=== PATIENT | male | born 1945 | race Caucasian/White ===

== ENCOUNTER → 2017-02-20 | Outpatient (CLI) | payer MEDICARE ==
--- NOTE | 2017-02-21 07:34 | ECHOF ---
Referral Reason:Edema R60.9 MEASUREMENTS -------- HEIGHT: 188.0 cm WEIGHT: 102.1 kg BP: 151/61 RVIDd: 3.5 cm (< 3.3) IVSd: 1.2 cm (0.6 - 1.1) LVIDd: 3.7 cm (3.9 - 5.3) LVPWd: 1.3 cm (0.6 - 1.1) IVSs: 1.8 cm LVIDs: 3.1 cm LVPWs: 2.0 cm LA Diam: 2.9 cm (2.7 - 3.8) LAESV Index (A-L): 19.10 ml/m Ao Diam: 4.0 cm (2.0 - 3.7) AV Cusp: 2.4 cm (1.5 - 2.6) MV EXCURSION: 13.883 mm (> 18.000) MV EF SLOPE: 54 mm/s (70 - 150) EPSS: 0.8 cm MV E Rj: 0.58 m/s MV DecT: 358 ms MV A Rj: 0.57 m/s MV E/A Ratio: 1.03 RAP: 5.00 mmHg RVSP: 28.02 mmHg FINDINGS -------- Sinus rhythm. This was a technically good study. The left ventricular size is normal. There is mild concentric left ventricular hypertrophy. Overall left ventricular systolic function is normal with, an EF between 55 - 60 %. The right ventricle is mildly enlarged. Normal LA size by volume 22+/-6 ml/m2. The right atrium is normal in size. The aortic valve is trileaflet and appears structurally normal. Mild mitral annular calcification present. There is trace to mild mitral regurgitation. Mild tricuspid regurgitation present. Right ventricular systolic pressure is normal at < 35 mmHg. Trace/mild (physiologic) pulmonic regurgitation. The aortic root size is normal. Normal inferior vena cava with normal inspiratory collapse consistent with estimated right atrial pressure of 5 mmHg. There is no pericardial effusion. CONCLUSIONS -------- 1. Sinus rhythm. 2. Mild mitral annular calcification present. 3. There is trace to mild mitral regurgitation. 4. Mild tricuspid regurgitation present. 5. Right ventricular systolic pressure is normal at < 35 mmHg. 6. Trace/mild (physiologic) pulmonic regurgitation. 7. The aortic root size is normal. 8. Normal inferior vena cava with normal inspiratory collapse consistent with estimated right atrial pressure of 5 mmHg. 9. There is no pericardial effusion. 10. This was a technically good study. 11. The left ventricular size is normal. 12. There is mild concentric left ventricular hypertrophy. 13. Overall left ventricular systolic function is normal with, an EF between 55 - 60 %. 14. The right ventricle is mildly enlarged. 15. Normal LA size by volume 22+/-6 ml/m2. 16. The right atrium is normal in size. 17. The aortic valve is trileaflet and appears structurally normal. NATURAL SCIENCES PROFESSOR: Grace Avila RDCS
== END | disposition home or self-care (01) ==
LOC: RADECHMAIN 15:39
PROVIDERS: ATTEND Family Medicine
DX: I08.1 Rheumatic disorders of both mitral and tricuspid valves (principal)
CPT/HCPCS: 93306

== ENCOUNTER → 2017-09-12 | Outpatient (CLI) | payer MEDICARE ==
--- NOTE | 2017-09-12 12:23 | XR ---
EXAMINATION TYPE: XR chest 2V DATE OF EXAM: 09/12/2017 COMPARISON: NONE HISTORY: Shortness of breath TECHNIQUE: Frontal and lateral views of the chest are obtained. FINDINGS: Scattered senescent parenchymal changes noted. Hyperinflation compatible with COPD. No evidence for infiltrate. No evidence for atelectasis. Heart size is stable. Mediastinal structures are stable and grossly unremarkable. No evidence for hilar prominence. Degenerative changes dorsal spine. IMPRESSION: 1. No evidence for acute pulmonary disease.
== END | disposition home or self-care (01) ==
LOC: RADXRYALE 11:41
PROVIDERS: ATTEND Family Medicine
DX: J44.9 Chronic obstructive pulmonary disease, unspecified (principal)
CPT/HCPCS: 71046

== ENCOUNTER → 2018-09-04 | Outpatient (CLI) | payer MEDICARE ==
--- NOTE | 2018-09-04 10:12 | ECHOF ---
Referral Reason:I44.7 Left bundle-branch block,R06.02 Shortness of MEASUREMENTS -------- HEIGHT: 188.0 cm WEIGHT: 102.1 kg BP: 111/59 RVIDd: 3.7 cm (< 3.3) IVSd: 1.4 cm (0.6 - 1.1) LVIDd: 4.0 cm (3.9 - 5.3) LVPWd: 1.3 cm (0.6 - 1.1) IVSs: 1.9 cm LVIDs: 2.8 cm LVPWs: 2.2 cm LA Diam: 3.5 cm (2.7 - 3.8) LAESV Index (A-L): 23.59 ml/m Ao Diam: 4.0 cm (2.0 - 3.7) AV Cusp: 2.2 cm (1.5 - 2.6) EPSS: 0.8 cm MV E Rj: 0.64 m/s MV DecT: 314 ms MV A Rj: 0.69 m/s MV E/A Ratio: 0.93 MV EF SLOPE: 68.46 mm/s (70 - 150) MV EXCURSION: 2.48 cm (> 18.000) FINDINGS -------- Sinus rhythm. This was a technically good study. The left ventricular size is normal. There is mild concentric left ventricular hypertrophy. Overa ll left ventricular systolic function is normal with, an EF between 55 - 60 %. The right ventricle is mildly enlarged. Normal LA size by volume 22+/-6 ml/m2. The right atrium is normal in size. The aortic valve is trileaflet and appears structurally normal. The mitral valve leaflets are mildly thickened. Mild mitral regurgitation is present. Mild tricuspid regurgitation present. Right ventricular systolic pressure is normal at < 35 mmHg. Trace/mild (physiologic) pulmonic regurgitation. The aortic root is dilated measuring 4.0cm. Normal inferior vena cava with normal inspiratory collapse consistent with estimated right atrial pre ssure of 5 mmHg. There is no pericardial effusion. CONCLUSIONS -------- 1. Sinus rhythm. 2. This was a technically good study. 3. The left ventricular size is normal. 4. There is mild concentric left ventricular hypertrophy. 5. Overall left ventricular systolic function is normal with, an EF between 55 - 60 %. 6. The right ventricle is mildly enlarged. 7. Normal LA size by volume 22+/-6 ml/m2. 8. The right atrium is normal in size. 9. The aortic valve is trileaflet and appears structurally normal. 10. The mitral valve leaflets are mildly thickened. 11. Mild mitral regurgitation is present. 12. Mild tricuspid regurgitation present. 13. Right ventricular systolic pressure is normal at < 35 mmHg. 14. Trace/mild (physiologic) pulmonic regurgitation. 15. The aortic root is dilated measuring 4.0cm. 16. Normal inferior vena cava with normal inspiratory collapse consistent with estimated right atrial pressure of 5 mmHg. 17. There is no pericardial effusion. RN BIRTHING: CECE Mason
== END | disposition home or self-care (01) ==
LOC: RADECHMAIN 08:37
PROVIDERS: ATTEND Family Medicine
DX: I37.1 Nonrheumatic pulmonary valve insufficiency (principal)
CPT/HCPCS: 93306

== ENCOUNTER 2018-09-15 10:38 | Day surgery (SDC) | payer MEDICARE ==
[2018-09-11 09:31] VITALS: BMI 28.8
[~2018-09-15 10:38] MED LIST: LACTATED RINGERS 1,000 ML IV SCH
[2018-09-15 10:56] VITALS: TEMP 97.9
[2018-09-15] MEDS ORDERED: LIDOCAINE 1% 20 ML VIAL (10MG/ML) FOR IV START INTRADERMA ONE (10:58)
[2018-09-15 11:30] VITALS: RESP 16
--- NOTE | 2018-09-15 11:30 | P.PCN ---
Date of Procedure: 09/15/18 Procedure(s) Performed: Procedure: Total colonoscopy. Preoperative diagnosis: Screening for neoplasia, patient has history of polyps. Postoperative diagnosis: Exam within normal limits. Preparation: HalfLytely prep. Sedation: Was provided by anesthesia. Brief clinical history: The patient is a 73-year-old male who is scheduled for this evaluation because of history of adenomatous polyps. His last exam was in July 2014. The patient has no abdominal complaints, bleeding or anemia. Procedure: With the patient on his left lateral decubitus position and after informed consent and adequate sedation, the perianal area was inspected and it did not show any fissures or fistulas. He were no masses felt on digital rectal examination. The Olympus CFH 190L video colonoscope was then inserted in the rectum in the usual fashion and advanced to the cecum. The mucosa appeared healthy. No polyps or tumors were seen or any obvious diverticular disease or other pathology. I retroflexed the endoscope in the rectum before the endoscope was withdrawn. The patient tolerated the procedure well. Plan: The patient was reassured. He will follow up with you as planned and I recommended repeat exam in 5 years.
[2018-09-15 11:51] VITALS: BP 135/84; PULSE 51
== END 2018-09-15 11:56 | disposition home or self-care (01) ==
LOC: ORWHC2ENDO 10:38
DX: Z12.11 Encounter for screening for malignant neoplasm of colon (principal); Z86.010 Personal history of colon polyps; J44.9 Chronic obstructive pulmonary disease, unspecified; M19.90 Unspecified osteoarthritis, unspecified site; N40.0 Benign prostatic hyperplasia without lower urinary tract symptoms; Z85.828 Personal history of other malignant neoplasm of skin; I50.9 Heart failure, unspecified; Z87.891 Personal history of nicotine dependence; Z79.1 Long term (current) use of non-steroidal anti-inflammatories (NSAID); Z79.51 Long term (current) use of inhaled steroids; Z79.899 Other long term (current) drug therapy

== ENCOUNTER → 2018-12-15 | Outpatient (CLI) | payer MEDICARE ==
[2018-12-15 15:25] LABS: HCT 42.7 % (39.0-53.0); HGB 14.5 gm/dL (13.0-17.5); MCH 31.8 pg (25.0-35.0); MCHC 33.9 g/dL (31.0-37.0); MCV 93.8 fL (80.0-100.0); Mean Platelet Volume 7.3; Platelet Count 209 k/uL (150-450); RBC 4.56 m/uL (4.30-5.90); RDW 14.4 % (11.5-15.5); WBC 7.8 k/uL (3.8-10.6)
[2018-12-15 15:41] LABS: African American GFR (CKD) >90 (>60 ml/min/1.73 sqM); Anion Gap 9 mmol/L; Blood Urea Nitrogen 18 mg/dL (9-20); Carbon Dioxide 25 mmol/L (22-30); Chloride 109 mmol/L (98-107); Sodium 143 mmol/L (137-145)
== END | disposition home or self-care (01) ==
LOC: LABPAT 14:56
PROVIDERS: ATTEND Internal Medicine Interventional Cardiology
DX: Z01.812 Encounter for preprocedural laboratory examination (principal); R06.02 Shortness of breath; I10 Essential (primary) hypertension
CPT/HCPCS: 36415; 80051; 82565; 84520; 85027

== ENCOUNTER → 2018-12-22 | Day surgery (SDC) | payer MEDICARE ==
[2018-12-17 13:34] VITALS: BMI 28.8
[~2018-12-22] MED LIST changes: +ALPRAZolam 0.25 MG TAB PO PRN; +ALPRAZolam 0.5 MG TAB PO PRN; +ASPIRIN 325 MG TAB PO STA; +ATORVASTATIN 80 MG TAB PO STA; +HEPARIN SODIUM 1,000 UN/ML (10ML VL) IV ONE; +HEPARIN SODIUM 1,000 UN/ML (10ML VL) ONE; +IOPAMIDOL-370 125ML BTL INJ ONE; -LACTATED RINGERS 1,000 ML IV SCH; +LIDOCAINE 1% INJ 10MG/ML (20 ML MDV) ONE; +LIDOCAINE 1% INJ 10MG/ML (20 ML MDV) SQ ONE; +MIDAZOLAM (PF) 2 MG/2 ML VIAL IVP ONE; +NITROGLYCERIN SL TABS 0.4 MG TAB SUBLINGUAL PRN; +RX INFO: IV CONTRAST WAS GIVEN 1 EACH MISC MISCELLANE PRN; +SODIUM CHLORIDE 0.9% 1,000 ML IV ONE; +SODIUM CHLORIDE 0.9% 1,000 ML IV SCH; +SODIUM CHLORIDE 0.9% 1,000 ML in EMPTY BAG 1 BAG IV ONE; +VERAPAMIL 2.5 MG/ML 2 ML AMP ONE
[2018-12-22 10:15] VITALS: TEMP 97.9
[2018-12-22] MEDS: VERAPAMIL SYRINGE (5 MG/10 ML) INTRAARTER ONE ×2 (11:38→11:40)
--- NOTE | 2018-12-22 12:53 | CC ---
CARDIAC CATHETERIZATION REPORT DATE OF SERVICE: December 22, 2018 PERFORMING PHYSICIAN: El Rhodes MD, driver supervisor. PROCEDURE PERFORMED: 1. Selective right and left coronary angiogram. 2. Left heart catheterization. INDICATION: This is a 73-year-old gentleman with hypertension, dyslipidemia, COPD, who was experiencing shortness of breath with exertion. He underwent noninvasive cardiac testing came into be unremarkable, but in spite of that, he continues to be symptomatic and because of that, a heart catheterization was advised. APPROACH: Right radial artery. COMPLICATION: None. LEVEL OF SEDATION: Moderate with sedation length of 13 minutes. PROCEDURE DESCRIPTION: After obtaining an informed consent, the patient was brought to cardiac laborer livestock. The right radial artery was cannulated using micropuncture technique. Then I placed a 5- [place] sheath. I did give the patient 2 mg of verapamil IA and 10,000 units of heparin IV. Selective right and left coronary angiogram performed using JR4 and JL3.5 catheters. Left heart catheterization was performed using the JR4 catheter which crossed the aortic valve then I did pullback across the valve. The procedure was completed without any complication. SELECTIVE CORONARY ANGIOGRAM: 1. The right coronary artery is a large caliber vessel. It is a dominant vessel. It is angiographically normal. Distally it bifurcates into PDA and PLV branches, both appeared to be angiographically normal. 2. The left main is angiographically normal. It bifurcates into left circumflex and left anterior descending artery. 3. The left circumflex is a large caliber vessel. It is a nondominant vessel and appeared to be angiographically normal. The left circumflex in the mid portion gives rise into a large OM branch which seems to be normal. 4. The LAD: The proximal LAD just by the bifurcation of the first diagonal branch has eccentric lesion was most identified on the PADRON caudal view and seems to be in the range of 50%. The mid LAD appeared to have mild disease only and the LAD distally appeared to be angiographically normal. The LAD in the proximal portion gives rise into a large diagonal branch which has mild ostial disease. HEMODYNAMICS: The left ventricular end-diastolic pressure was 11 mmHg without significant gradient across the aortic valve. CONCLUSION: 1. Intermediate disease involving the proximal LAD. The disease appeared to be in the range of 50% to 60%. 2. Normal left ventricular end-diastolic pressure. POSTPROCEDURE MANAGEMENT: 1. Aggressive cholesterol control. 2. Risk factors modifications. 3. Follow up with the patient. MMRANDALL / IJN: [id number] /
--- NOTE | 2018-12-22 13:38 | LTR ---
December 22, 2018 Re: Neal Pierceenno Dear Dr. Montanez: Mr. Neal Dobson underwent today heart catheterization and that revealed intermediate disease involving the proximal left anterior descending artery. I did recommend maximized medical treatment and risk factors modifications. I want to thank you for allowing us to participate in his care and please do not hesitate to call if you have any question or concern. Sincerely, MD KALI Avila / HAYLIE: [id number] /
[2018-12-22 15:07] VITALS: BP 125/78; PULSE 46; RESP 16
== END ==
LOC: CATHCVL 09:28
PROVIDERS: ATTEND Internal Medicine Interventional Cardiology
DX: I25.110 Atherosclerotic heart disease of native coronary artery with unstable angina pectoris (principal); I77.819 Aortic ectasia, unspecified site; I10 Essential (primary) hypertension; E78.00 Pure hypercholesterolemia, unspecified; R60.0 Localized edema; Z87.891 Personal history of nicotine dependence; E78.5 Hyperlipidemia, unspecified; J44.9 Chronic obstructive pulmonary disease, unspecified
CPT/HCPCS: 93458; C1769; C1894; J2001; J1644; Q9967; J2250

== ENCOUNTER → 2019-12-07 | Outpatient (CLI) | payer MEDICARE ==
[2019-12-07 16:26] LABS: African American GFR (CKD) >90 (>60 ml/min/1.73 sqM); Blood Urea Nitrogen 17 mg/dL (9-20); Non-African American GFR(CKD) 89 (>60 ml/min/1.73 sqM)
--- NOTE | 2019-12-08 08:10 | CT ---
EXAMINATION TYPE: CT urogram wo/w con DATE OF EXAM: 12/07/2019 COMPARISON: None HISTORY: Microhematuria. CT DLP: 2300.6 mGycm Automated exposure control for dose reduction was used. CONTRAST: Performed without and with IV Contrast, patient injected with 100ml mL of Isovue 300. TECHNIQUE: Axial images 5 mm thick sections. Reconstructed images in the coronal and sagittal plane. Three-D reconstructed images performed on a separate computer by the technologist through the renal c ollecting system was performed following contrast. FINDINGS: Renal calyces infundibuli and renal pelves appear normal. Ureters follow a normal caliber course and contour to the urinary bladder. Urinary bladder with contrast appears normal. There is a portion of u rinary bladder without contrast limiting portions of the evaluation. Limited CT sections are obtained the lung bases which are clear. CT ABDOMEN: Liver has a normal density without discrete masses or cysts. Spleen contains calcificatio n. Adrenal glands are normal. Pancreas is unremarkable. Gallbladder is normal. Vascular calcification s within the aorta. Vena cava is normal. Attention is paid to the kidneys. No masses cysts or hydronephrosis are evident. There is symmetrical excretion following contrast administration. CT PELVIS: Loops of bowel without oral contrast appear unremarkable. The appendix is visualized is no rmal. Urinary bladder on the axial images appears normal. The prostate is somewhat prominent. IMPRESSION: 1. NO SUSPICIOUS CHANGES CT UROGRAM
== END | disposition home or self-care (01) ==
LOC: RADCTMAIN 15:51
PROVIDERS: ATTEND Urology
DX: R31.1 Benign essential microscopic hematuria (principal)
CPT/HCPCS: 82565; 84520; 74178; 36415; 74400; Q9967

== ENCOUNTER → 2020-09-06 | Outpatient (CLI) | payer MEDICARE ==
--- NOTE | 2020-09-06 12:30 | XR ---
EXAMINATION TYPE: XR finger RT DATE OF EXAM: 09/06/2020 CLINICAL HISTORY: pain First digit. TECHNIQUE: 3 views of the right first digit are submitted. COMPARISON: None FINDINGS: There is chip or avulsion fracture noted at the base of the distal phalanx of the right fir st digit at its palmar aspect. Mild soft tissue swelling. IMPRESSION: As above.
== END | disposition home or self-care (01) ==
LOC: RADXRYALE 11:49
PROVIDERS: ATTEND Physician Assistant Medical
DX: M79.89 Other specified soft tissue disorders (principal)

== ENCOUNTER 2022-11-04 06:17 | Day surgery (SDC) | payer MEDICARE, BC ==
[2022-11-04] MEDS ORDERED: ALPRAZolam 0.25 MG TAB PO PRN (06:18)
[2022-11-04] MEDS ORDERED: ASPIRIN 325 MG TAB PO STA (06:18)
[2022-11-04] MEDS ORDERED: NITROGLYCERIN SL TABS 0.4 MG TAB SUBLINGUAL PRN (06:18)
[2022-11-04] MEDS ORDERED: ALPRAZolam 0.5 MG TAB PO PRN (06:18)
[2022-11-04] MEDS ORDERED: SODIUM CHLORIDE 0.9% 1,000 ML in EMPTY BAG 1 BAG IV SCH (06:18)
[2022-11-04 07:04] VITALS: RESP 18; TEMP 97.9
[2022-11-04] MEDS ORDERED: VERAPAMIL 2.5 MG/ML 2 ML AMP ONE (07:13)
[2022-11-04] MEDS ORDERED: IV FLUID CONTINUATION 1,000 ML IV ONE (07:31)
[2022-11-04] MEDS: BENZOCAINE SPRAY 1 CAN TOPICAL ONE ×2 (07:36→07:55)
[2022-11-04] MEDS ORDERED: HEPARIN SODIUM 1,000 UN/ML (10ML VL) ONE (07:41)
[2022-11-04] MEDS ORDERED: fentaNYL (PF) 50 MCG/ML 2 ML AMP ONE (07:45)
[2022-11-04] MEDS ORDERED: fentaNYL (PF) 50 MCG/1 ML VIAL IVP ONE (07:55)
[2022-11-04] MEDS ORDERED: MIDAZOLAM 2 MG/2 ML VIAL IVP ONE ×2 (07:55→07:57)
[2022-11-04] MEDS ORDERED: VERAPAMIL SYRINGE (5 MG/10 ML) INTRAARTER ONE (08:01)
--- NOTE | 2022-11-04 08:06 | P.PCN ---
Date of Procedure: 11/04/22 Operative Findings: TRANSESOPHAGEAL ECHOCARDIOGRAM RECRUIT INSTRUCTOR: FREDRICK KWONG MD, RPVI INDICATION: Mitral regurgitation SEDATION: Conscious sedation COMPLICATION: None LEVEL OF SEDATION Moderate to sedation length of 12 minutes PROCEDURE DESCRIPTION: After obtaining an informed consent, the patient was brought to transesophageal echocardiogram room. Pulse oximetry and heart monitors were attached to the patient. The patient throat was sprayed using lidocaine. The patient was turned into left lateral position. After that a bite guard was placed. After an appropriate conscious sedation was initiated, the transesophageal echocardiogram was advanced through a bite guard into the mid esophagus. A 2-D echocardiogram images, color Doppler images, continuous wave images, pulse-wave images, of various cardiac structure were performed. After that the transesophageal echocardiogram probe was advanced into the stomach and fixed to obtain transgastric view was. The probe was brought into the mid esophagus. Inter-atrial septum was interrogated using 2D images, color Doppler images, and then contrast study. After that transesophageal echocardiogram was withdrawn out and upon withdrawing the descending thoracic aorta all the way up to the arch was evaluated. FINDING: The left ventricle appeared to be mildly dilated. The left ventricular systolic function appeared to be mildly impaired was EF around 45%. The right ventricle is dilated. The left atrium and right atrium arm also mildly dilated. The left atrial appendage appeared to be free from any thrombus. The interatrial septum appeared to be aneurysmal with evidence of [id number] shunt and possibly [id number]-[id number] shunt. The aortic valve is trileaflet valve with no stenosis with mild insufficiency. The mitral valve appeared to be intact into above the leaflet thickness but there is moderate mitral insufficiency with a posteriorly directed jet. Normal tricuspid valve and pulmonic valve. CONCLUSION: 1. 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 Dilated right ventricle and right atrium 3. Mildly impaired LV function was EF around 45% 4. Intact mitral valve leaflets with moderate mitral regurgitation and posterior directed jet 5. Trileaflet aortic valve was mild aortic insufficiency 6. No evidence of pericardial effusion
[2022-11-04] MEDS ORDERED: LIDOCAINE 1% INJ 10MG/ML (5 ML VIAL-PF) SQ ONE ×2 (08:08→08:09)
[2022-11-04] MEDS ORDERED: HEPARIN SODIUM 1,000 UN/ML (10ML VL) IV ONE (08:12)
[2022-11-04] MEDS ORDERED: IOPAMIDOL-370 100ML BTL INJ ONE (08:20)
[2022-11-04] MEDS ORDERED: RX INFO: IV CONTRAST WAS GIVEN 1 EACH MISC MISCELLANE PRN (08:21)
--- NOTE | 2022-11-04 08:25 | P.PCN ---
Date of Procedure: 11/04/22 Operative Findings: CARDIAC CATHETERIZATION PERFORMING PHYSICIAN: El Rhodes MD, RPVI PROCEDURE PERFORMED: 1. Selective right and left coronary angiogram 2. Left heart catheterization INDICATION: Shortness of breath in this 77-year-old gentleman who continues to be symptomatic. He is known to have CAD with intermediate disease involving the LAD COMPLICATION: None APPROACH: Right radial artery LEVEL OF SEDATION: Moderate with a sedation length of 25 minutes PROCEDURE DESCRIPTION: After obtaining an informed consent, the patient was brought to cardiac collaborative physician. Local anesthesia was performed using lidocaine subcutaneously. The right radial artery was cannulated using Seldinger technique, the guidewire passed easily, following that we advanced a 5-[place] sheath dilator assembly, the wire and dilator were removed and sheath was flushed. Following that, 2 mg of verapamil along with 5000 unit heparin were given. Selective right and left coronary angiogram using a 6-[place] JR4 and JL 3.5 catheters. Following that we did left heart catheterization using 6-[place]au[place] pigtail catheter. The procedure was completed there was no complication. SELECTIVE CORONARY ANGIOGRAM: The right coronary artery: Large caliber vessel and a dominant vessel was mild disease only in the midportion appears to be in the range of 30%. Left main: Its angiographically normal. The left circumflex: Large caliber vessel and nondominant vessel and appears to be angiographically normal The left anterior descending artery: The LAD by the bifurcation of a large diagonal branch appears to have a lesion in the range of 30-40% as well. HEMODYNAMICS: The LVEDP was 7 mmHg was no significant gradient across aortic valve CONCLUSION: 1. Mild to moderate nonobstructive coronary artery disease 2. Normal left-sided filling pressure POSTPROCEDURE MANAGEMENT: []
[2022-11-04] MEDS ORDERED: SODIUM CHLORIDE 0.9% 1,000 ML IV SCH (08:30)
[2022-11-04 11:36] VITALS: BP 132/78; PULSE 65
== END 2022-11-04 11:53 | disposition home or self-care (01) ==
LOC: CATHCVL 06:17
PROVIDERS: ATTEND Internal Medicine Interventional Cardiology
DX: I25.10 Atherosclerotic heart disease of native coronary artery without angina pectoris (principal); I08.0 Rheumatic disorders of both mitral and aortic valves; I42.8 Other cardiomyopathies; I25.3 Aneurysm of heart; I10 Essential (primary) hypertension; E78.5 Hyperlipidemia, unspecified; J44.9 Chronic obstructive pulmonary disease, unspecified; F17.210 Nicotine dependence, cigarettes, uncomplicated; I47.1 Supraventricular tachycardia; I70.0 Atherosclerosis of aorta; Z79.51 Long term (current) use of inhaled steroids; Z79.82 Long term (current) use of aspirin; Z79.899 Other long term (current) drug therapy
CPT/HCPCS: 93312; 93320; 93325; 93458; 99152; 99153; C1769; C1894; J2250; J2001; J1644; Q9967; J3010

== ENCOUNTER 2023-10-13 05:26 | Emergency (ER) | payer BC, MEDICARE ==
[2023-10-13] MEDS: IPRATROPIUM-ALBUTEROL 3 ML NEB INHALATION STA (06:31)
[2023-10-13] MEDS: SODIUM CHLORIDE 0.9% 500 ML 500 ML IV STA (06:51)
[2023-10-13] MEDS: SODIUM CHLORIDE 0.9% 1,000 ML IV STA (06:52)
--- NOTE | 2023-10-13 06:53 | ED ---
General Adult HPI - General Chief complaint: Back Pain/Injury Stated complaint: back pain Time Seen by Provider: 10/13/23 05:45 Source: patient, family, EMS, RN notes reviewed Mode of arrival: EMS Limitations: no limitations - History of Present Illness Initial comments: 78-year-old male presents emergency department with chief complaint of left flank pain. Patient states it was sudden onset woke him up this morning. Patient states nothing makes the pain feel better or worse he did receive Toradol which seemed to help. Patient states he had no vomiting no significant nausea no dysuria he does have urinary frequency which is chronic he has no low er extremity symptoms no paresthesias no weakness. Patient states he had no injury to his back. No rashes - Related Data Home Medications Medication Instructions Recorded Confirmed Naproxen Sodium [Aleve] 440 mg PO QAM 08/02/14 01/21/23 Mirabegron [Myrbetriq] 50 mg PO DAILY 09/11/18 01/21/23 [place]-3 Fatty Acids/Fish Oil [Fish 1 each PO DAILY 09/11/18 01/21/23 Oil 1,000 mg Softgel] Tamsulosin HCl [Flomax] 0.4 mg PO DAILY 09/11/18 01/21/23 Vit C/E/Zn/Coppr/Lutein/Zeaxan 2 each PO DAILY 09/11/18 01/21/23 [Preservision Areds 2 Softgel] Ipratropium/Albuterol Sulfate 1 puff INHALATION BID PRN 12/17/18 01/22/23 [Combivent Respimat Inhaler] Aspirin 81 mg PO DAILY 11/01/22 01/22/23 Budesonide/Formoterol Fumarate 2 puff INHALATION BID 01/17/23 01/22/23 [Symbicort 160-4.5 Mcg Inhaler] Previous Rx's Medication Instructions Recorded Cephalexin [Keflex] 500 mg PO Q8HR #30 cap 10/13/23 Ketorolac [Toradol] 10 mg PO Q8HR #15 tab 10/13/23 Ondansetron Odt [Zofran Odt] 4 mg PO Q8HR PRN #10 tab 10/13/23 Allergies Allergy/AdvReac Type Severity Reaction Status Date / Time No Known Allergies Allergy Verified 10/13/23 05:32 Review of Systems ROS Statement: Those systems with pertinent positive or pertinent negative responses have been documented in the HPI. ROS Other: All systems not noted in ROS Statement are negative. Past Medical History Past Medical History: Cancer, COPD, Osteoarthritis (OA), Pneumonia, Prostate Disorder Additional Past Medical History / Comment(s): uses O2@2L [place] or uses with cpap,uses cpap intertmittently, Hx skin cancer, Pneumonia., See cardiology H & P. History of Any Multi-Drug Resistant Organisms: None Reported Past Surgical History: Tonsillectomy Additional Past Surgical History / Comment(s): Vasectomy. Past Anesthesia/Blood Transfusion Reactions: No Reported Reaction Additional Past Anesthesia/Blood Transfusion Reaction / Comment(s): no hx blood transfusion Past Psychological History: No Psychological Hx Reported Smoking Status: Former smoker Past Alcohol Use History: Rare Past Drug Use History: None Reported - Past Family History Mother Family Medical History: Cancer Brother(s) Family Medical History: Deep Vein Thrombosis (DVT) General Exam Limitations: no limitations General appearance: alert, in no apparent distress Head exam: Present: atraumatic, normocephalic, normal inspection Eye exam: Present: normal appearance, PERRL, EOMI. Absent: scleral icterus, conjunctival injection, periorbital swelling ENT exam: Present: normal exam, mucous membranes moist Neck exam: Present: normal inspection. Absent: tenderness, meningismus, lymphadenopathy Respiratory exam: Present: wheezes. Absent: normal lung sounds bilaterally, respiratory distress, rales, rhonchi, stridor Cardiovascular Exam: Present: regular rate, normal rhythm, normal heart sounds. Absent: systolic murmur, diastolic murmur, rubs, gallop, clicks GI/Abdominal exam: Present: soft, normal bowel sounds. Absent: distended, tenderness, guarding, rebound, rigid Extremities exam: Present: normal inspection, full ROM, normal capillary refill. Absent: tenderness, pedal edema, joint swelling, calf tenderness Back exam: Present: full ROM. Absent: tenderness, CVA tenderness (R), CVA tenderness (L), paraspinal tenderness, vertebral tenderness Course Vital Signs 10/13/23 10/13/23 10/13/23 05:30 06:30 06:40 Temperature 98.4 F Pulse Rate 94 91 92 Respiratory 18 Rate Blood Pressure 174/93 O2 Sat by Pulse 94 L Oximetry 10/13/23 10/13/23 10/13/23 06:41 06:50 09:46 Temperature 98.2 F Pulse Rate 92 95 102 H Respiratory 18 Rate Blood Pressure 118/67 O2 Sat by Pulse 96 Oximetry Medical Decision Making - Medical Decision Making Was pt. sent in by a medical professional or institution (, [facility], REINFORCED IRONWORKER, urgent care, hospital, or penitentiary...) When possible be specific @ -No Did you speak to anyone other than the patient for history (EMS, parent, family, police, friend...)? What history was obtained from this source @ -No Did you review nursing and triage notes (agree or disagree)? Why? @ -I reviewed and agree with nursing and triage notes Were old charts reviewed (outside hosp., previous admission, EMS record, old EKG, old radiological studies, urgent care reports/EKG's, penitentiary records)? Report findings @ -No old charts were reviewed Differential Diagnosis (chest pain, altered mental status, abdominal pain women, abdominal pain men, vaginal bleeding, weakness, fever, dyspnea, syncope, headache, dizziness, GI bleed, back pain, seizure, CVA, palpatations, mental health, musculoskeletal)? @ -Differential Abdominal Pain Men: Appendicitis, cholecystitis, diverticulosis, ischemic bowel, pancreatitis, hepatitis, UTI, gastroenteritis, AAA, incarcerated hernia, bowel obstruction, constipation, inflammatory bowel, hepatitis, peptic ulcer disease, splenic infarction, perforated viscus, testicular torsion, this is not meant to be an all-inclusive list EKG interpreted by me (3pts min.). @ -None X-rays interpreted by me (1pt min.). @ -None done CT interpreted by me (1pt min.). @ -CT abdomen pelvis showing evidence of left UPJ 9 mm stone mild obstructive process U/S interpreted by me (1pt. min.). @ -None done What testing was considered but not performed or refused? (CT, X-rays, U/S, labs)? Why? @ -None What meds were considered but not given or refused? Why? @ -None Did you discuss the management of the patient with other professionals (professionals i.e. LINNEA Johnson, REINFORCED IRONWORKER, lab, RT, psych nurse, social worker health services, shake feeder, t eacher, aircraft electronics technical officer, bottle caser)? Give summary @ -[Discussed this with Dr. cedillo urology regarding CT findings and urine recommended antibiotics and follow-up outpatient as pain is currently controlled Was smoking cessation discussed for >3mins.? @ -No Was critical care preformed (if so, how long)? @ -No Were there social determinants of health that impacted care today? How? (Homelessness, low income, unemployed, alcoholism, drug addiction, transportation, low edu. Level, literacy, decrease access to med. care, shelter, rehab)? @ -No Was there de-escalation of care discussed even if they declined (Discuss DNR or withdrawal of care, Hospice)? DNR status @ -No What co-morbidities impacted this encounter? (DM, HTN, Smoking, COPD, CAD, Cancer, CVA, ARF, Chemo, Hep., AIDS, mental health diagnosis, sleep apnea, morbid obesity)? @ -None Was patient admitted / discharged? Hospital course, mention meds given and route, prescriptions, significant lab abnormalities, going to OR and other perti nent info. @ -Discharge patient was given Rocephin, discharged with oral antibiotics, analgesics patient will follow-up with urology for possible procedure return parameters discussed. Undiagnosed new problem with uncertain prognosis? @ -No Drug Therapy requiring intensive monitoring for toxicity (Heparin, Nitro, Insulin, Cardizem)? @ -No Were any procedures done? @ -No Diagnosis/symptom? @ -Left ureteral calculus Acute, or Chronic, or Acute on Chronic? @ -Acute Uncomplicated (without systemic symptoms) or Complicated (systemic symptoms)? @ -Uncomplicated Side effects of treatment? @ -No Exacerbation, Progression, or Severe Exacerbation? @ -No Poses a threat to life or bodily function? How? (Chest pain, USA, IA, pneumonia, PE, COPD, DKA, ARF, appy, cholecystitis, CVA, Diverticulitis, Homicidal, Suicidal, threat to staff... and all critical care pts) @ -No - Lab Data Result diagrams: 10/13/23 06:52 10/13/23 06:52 Lab Results 10/13/23 10/13/23 10/13/23 Range/Units 06:52 06:52 06:52 WBC 11.9 H (3.8-10.6) k/uL RBC 4.94 (4.30-5.90) m/uL Hgb 15.2 (13.0-17.5) gm/dL Hct 46.3 (39.0-53.0) % MCV 93.7 (80.0-100.0) fL MCH 30.8 (25.0-35.0) pg MCHC 32.8 (31.0-37.0) g/dL RDW 13.5 (11.5-15.5) % Plt Count 191 (150-450) k/uL MPV 7.7 Neutrophils % 90 % Lymphocytes % 4 % Monocytes % 4 % Eosinophils % 1 % Basophils % 0 % Neutrophils # 10.7 H (1.3-7.7) k/uL Lymphocytes # 0.5 L (1.0-4.8) k/uL Monocytes # 0.5 (0-1.0) k/uL Eosinophils # 0.2 (0-0.7) k/uL Basophils # 0.0 (0-0.2) k/uL Sodium 142 (137-145) mmol/L Potassium 4.1 (3.5-5.1) mmol/L Chloride 115 H (98-107) mmol/L Carbon Dioxide 21 L (22-30) mmol/L Anion Gap 6 mmol/L BUN 33 H (9-20) mg/dL Creatinine 1.03 (0.66-1.25) mg/dL Est GFR (CKD-EPI)AfAm 81 (>60 ml/min/1.73 sqM) Est GFR (CKD-EPI)NonAf 70 (>60 ml/min/1.73 sqM) Glucose 114 H (74-99) mg/dL Plasma Lactic Acid Alex 1.3 (0.7-2.0) mmol/L Calcium 8.9 (8.4-10.2) mg/dL Total Bilirubin 0.9 (0.2-1.3) mg/dL AST 32 (17-59) U/L ALT 41 (4-49) U/L Alkaline Phosphatase 116 (38-126) U/L Total Protein 6.2 L (6.3-8.2) g/dL Albumin 3.8 (3.5-5.0) g/dL Lipase 100 (23-300) U/L Urine Color Urine Appearance (Clear) Urine pH (5.0-8.0) Ur Specific [place] (1.001-1.035) Urine Protein (Negative) Urine Glucose (UA) (Negative) Urine Ketones (Negative) Urine Blood (Negative) Urine Nitrite (Negative) Urine Bilirubin (Negative) Urine Urobilinogen (<2.0) mg/dL Ur Leukocyte Esterase (Negative) Urine RBC (0-5) /hpf Urine WBC (0-5) /hpf Urine WBC Clumps (None) /hpf Ur Squamous Epith Cells (0-4) /hpf Calcium Oxalate Crystal (None) /hpf Urine Bacteria (None) /hpf Urine Mucus (None) /hpf 10/13/23 Range/Units 08:10 WBC (3.8-10.6) k/uL RBC (4.30-5.90) m/uL Hgb (13.0-17.5) gm/dL Hct (39.0-53.0) % MCV (80.0-100.0) fL MCH (25.0-35.0) pg MCHC (31.0-37.0) g/dL RDW (11.5-15.5) % Plt Count (150-450) k/uL MPV Neutrophils % % Lymphocytes % % Monocytes % % Eosinophils % % Basophils % % Neutrophils # (1.3-7.7) k/uL Lymphocytes # (1.0-4.8) k/uL Monocytes # (0-1.0) k/uL Eosinophils # (0-0.7) k/uL Basophils # (0-0.2) k/uL Sodium (137-145) mmol/L Potassium (3.5-5.1) mmol/L Chloride (98-107) mmol/L Carbon Dioxide (22-30) mmol/L Anion Gap mmol/L BUN (9-20) mg/dL Creatinine (0.66-1.25) mg/dL Est GFR (CKD-EPI)AfAm (>60 ml/min/1.73 sqM) Est GFR (CKD-EPI)NonAf (>60 ml/min/1.73 sqM) Glucose (74-99) mg/dL Plasma Lactic Acid Alex (0.7-2.0) mmol/L Calcium (8.4-10.2) mg/dL Total Bilirubin (0.2-1.3) mg/dL AST (17-59) U/L ALT (4-49) U/L Alkaline Phosphatase (38-126) U/L Total Protein (6.3-8.2) g/dL Albumin (3.5-5.0) g/dL Lipase (23-300) U/L Urine Color Colorless Urine Appearance Cloudy (Clear) Urine pH 5.5 (5.0-8.0) Ur Specific [place] 1.017 (1.001-1.035) Urine Protein Trace H (Negative) Urine Glucose (UA) Negative (Negative) Urine Ketones Negative (Negative) Urine Blood Moderate H (Negative) Urine Nitrite Positive (Negative) Urine Bilirubin Negative (Negative) Urine Urobilinogen <2.0 (<2.0) mg/dL Ur Leukocyte Esterase Large H (Negative) Urine RBC 38 H (0-5) /hpf Urine WBC 92 H (0-5) /hpf Urine WBC Clumps Few H (None) /hpf Ur Squamous Epith Cells <1 (0-4) /hpf Calcium Oxalate Crystal Occasional H (None) /hpf Urine Bacteria Rare H (None) /hpf Urine Mucus Rare H (None) /hpf Disposition Clinical Impression: Left ureteral calculus Disposition: HOME SELF-CARE Condition: Stable Instructions (If sedation given, give patient instructions): Kidney Stones (ED) Additional Instructions: Please return to the Emergency Department if symptoms worsen or any other concerns. Prescriptions: Cephalexin [Keflex] 500 mg PO Q8HR #30 cap Ketorolac [Toradol] 10 mg PO Q8HR #15 tab Ondansetron Odt [Zofran Odt] 4 mg PO Q8HR PRN #10 tab PRN Reason: Nausea Is patient prescribed a controlled substance at d/c from ED?: No Referrals: Kike Montanez DO [Primary Care Provider] - 1-2 days Johnnie Cedillo MD [STAFF PHYSICIAN] - 1-2 days Time of Disposition: 09:36
[2023-10-13 06:57] VITALS: RESP 18
[2023-10-13 07:16] LABS: ALT 41 U/L (4-49); AST 32 U/L (17-59); African American GFR (CKD) 81 (>60 ml/min/1.73 sqM); Albumin 3.8 g/dL (3.5-5.0); Alkaline Phosphatase 116 U/L (38-126); Anion Gap 6 mmol/L; Blood Urea Nitrogen 33 mg/dL (9-20); Calcium 8.9 mg/dL (8.4-10.2); Carbon Dioxide 21 mmol/L (22-30); Chloride 115 mmol/L (98-107); Glucose 114 mg/dL (74-99); Lipase 100 U/L (23-300); Non-African American GFR(CKD) 70 (>60 ml/min/1.73 sqM); Potassium 4.1 mmol/L (3.5-5.1); Sodium 142 mmol/L (137-145); Total Bilirubin 0.9 mg/dL (0.2-1.3); Total Protein 6.2 g/dL (6.3-8.2)
[2023-10-13 07:27] LABS: Basophils % (A) 0 %; Eosinophils # (A) 0.2 k/uL (0-0.7); Eosinophils % (A) 1 %; HCT 46.3 % (39.0-53.0); HGB 15.2 gm/dL (13.0-17.5); Lymphocytes # (A) 0.5 k/uL (1.0-4.8); Lymphocytes % (A) 4 %; MCH 30.8 pg (25.0-35.0); MCHC 32.8 g/dL (31.0-37.0); MCV 93.7 fL (80.0-100.0); Mean Platelet Volume 7.7; Monocytes # (A) 0.5 k/uL (0-1.0); Monocytes % (A) 4 %; Neutrophils # (A) 10.7 k/uL (1.3-7.7); Neutrophils % (A) 90 %; Platelet Count 191 k/uL (150-450); RBC 4.94 m/uL (4.30-5.90); RDW 13.5 % (11.5-15.5); WBC 11.9 k/uL (3.8-10.6)
--- NOTE | 2023-10-13 07:40 | CT ---
EXAMINATION TYPE: CT abdomen pelvis wo con DATE OF EXAM: 10/13/2023 COMPARISON: 12/07/2019 HISTORY: 78-year-old male Left flank pain CT DLP: 765.3 mGycm. Automated exposure control for dose reduction was used. TECHNIQUE: Contiguous axial scanning of the abdomen and pelvis without IV contrast. Coronal and sagit tabitha reconstructions performed. FINDINGS: LUNG BASES: Similar emphysematous changes as well as scarring or atelectasis at the lung bases. LIVER/GB: No significant abnormality is appreciated. PANCREAS: No significant abnormality is seen. SPLEEN: A couple benign calcified granulomas. ADRENALS: No significant abnormality is seen. KIDNEYS: Clustered punctate calcifications left kidney. Larger 9 mm stone at the left UVJ with modera te obstructive uropathy. Moderate perinephric edema. LYMPH NODES: No significant abnormality is seen. BOWEL: No significant abnormality is seen. OTHER: No significant abnormality is seen. PELVIS: Bladder is urine distended. Tiny layering gravel/bladder stones/debris. Prostate gland is enl arged at 6.3 cm wide. Small pelvic phleboliths. Otherwise, no abnormal fluid collection the pelvis or pelvic lymphadenopathy. BONES: Transitional lumbosacral segment is noted as a sacralized L5. Moderate degenerative disc disea se at L4-L5 and hypertrophic facet arthropathy throughout. Moderate degenerative change in both hips. IMPRESSION: 1. A 9 mm stone at the left UPJ with moderate obstructive uropathy. 2. Additional moderate perinephric edema/stranding on the left probably reactive to the obstruction. Correlate to exclude superimposed infection. 3. Some clustered punctate nonobstructive left renal calculi. Punctate layering gravel/stone debris within the bladder as well. 4. Prostatomegaly at 6.3 cm wide. Correlate with patient's symptoms and PSA values.
[2023-10-13 09:18] LABS: Appearance,Urine Cloudy (Clear); Bacteria,Urine Rare /hpf; Bilirubin,Urine Negative (Negative); Blood,Urine Moderate (Negative); Calcium Oxalate Crystals,Urine Occasional /hpf; Color,Urine Colorless; Glucose,Urine (UA) Negative (Negative); Ketones,Urine Negative (Negative); Leukocyte Esterase,Urine Large (Negative); Mucus,Urine Rare /hpf; Nitrite,Urine Positive (Negative); PH, Urine 5.5 (5.0-8.0); Protein,Urine Trace (Negative); RBC,Urine 38 /hpf (0-5); Specific Gravity,Urine 1.017 (1.001-1.035); Squamous Epithelial Cell,Urine <1 /hpf (0-4); Urobilinogen,Urine <2.0 mg/dL (<2.0); WBC,Urine 92 /hpf (0-5)
[2023-10-13] MEDS: ACET/COD 300 MG/30 MG STARTER PACK 6 TAB BTL PO STA (09:41)
[2023-10-13] MEDS: cefTRIAXone IN SWFI 1,000 MG/10 ML SYRINGE IVP STA (09:42)
[2023-10-13 13:24] VITALS: BP 118/67; PULSE 102; TEMP 98.2
== END 2023-10-13 09:46 | disposition home or self-care (01) ==
LOC: EC 05:26
DX: N20.1 Calculus of ureter (principal); Z87.891 Personal history of nicotine dependence
CPT/HCPCS: 36415; 94640 ×2; 80053; 83605; 83690; 85025; 81001; 87086; 74176; 99284; 96374; 96361 ×3; J0696

== ENCOUNTER 2023-11-20 05:55 | Day surgery (SDC) | payer MEDICARE ==
--- NOTE | 2023-11-19 08:15 | P.GSHP ---
History of Present Illness H&P Date: 11/19/23 Chief Complaint: Left flank pain The patient is a 78-year-old white male who presented with left flank pain, associated with nausea and vomiting. Urinalysis was suggestive of a UTI. CT scan showed left hydronephrosis due to a 9 mm left UPJ calculus. He was treated with antibiotics and underwent left ureteral stent insertion. He felt considerably better following that. The urine culture was negative. - Constitutional Constitutional: Denies chills, Denies fever - Gastrointestinal Gastrointestinal: Reports nausea, Reports vomiting - Genitourinary (Male) Genitourinary: Reports flank pain, Reports kidney stones, Denies hematuria Past Medical History Past Medical History: Cancer, COPD, Hyperlipidemia, Osteoarthritis (OA), Pneumonia, Prostate Disorder, Sleep Apnea/CPAP/BIPAP Additional Past Medical History / Comment(s): uses O2@2L [place] @ night or uses with cpap intertmittently, Hx skin cancer, Pneumonia., See cardiology H & P. kidney stone, BPH, pt states he has CHF, leg edema History of Any Multi-Drug Resistant Organisms: None Reported Past Surgical History: Heart Catheterization, Tonsillectomy Additional Past Surgical History / Comment(s): Vasectomy. colonoscopy Past Anesthesia/Blood Transfusion Reactions: No Reported Reaction Additional Past Anesthesia/Blood Transfusion Reaction / Comment(s): no hx blood transfusion Smoking Status: Former smoker - Past Family History Mother Family Medical History: Cancer Brother(s) Family Medical History: Deep Vein Thrombosis (DVT) Medications and Allergies Home Medications Medication Instructions Recorded Confirmed Type Naproxen Sodium [Aleve] 440 mg PO QAM 08/02/14 11/18/23 History Mirabegron [Myrbetriq] 50 mg PO DAILY 09/11/18 11/18/23 History Tamsulosin HCl [Flomax] 0.4 mg PO DAILY 09/11/18 11/18/23 History Ipratropium/Albuterol Sulfate 1 puff INHALATION BID PRN 12/17/18 11/18/23 History [Combivent Respimat Inhaler] Aspirin 81 mg PO DAILY 11/01/22 11/18/23 History Budesonide/Formoterol Fumarate 2 puff INHALATION BID 01/17/23 11/18/23 History [Symbicort 160-4.5 Mcg Inhaler] Atorvastatin Calcium [Lipitor] 40 mg PO DAILY 11/18/23 11/18/23 History Unk Areds Vitamin 1 tab PO DAILY 11/18/23 11/18/23 History Allergies Allergy/AdvReac Type Severity Reaction Status Date / Time No Known Allergies Allergy Verified 11/18/23 10:18 Surgical - Exam - General well developed, well nourished, no distress - Respiratory normal respiratory effort - Abdomen Abdomen: soft, non tender, no guarding, no rigid, no rebound - Genitourinary normal penis with no external lesions, testicles non-tender - Psychiatric oriented to time, oriented to person, oriented to place, speech is normal, memory intact Assessment and Plan (1) Calculus of ureter Status: Acute Code(s): N20.1 - CALCULUS OF URETER SNOMED Code(s): 33561438 Plan: Cystoscopy, left ureteral stent removal, left ureteroscopy with Holmium laser lithotripsy and possible stone basketing. The procedure has been reviewed in detail with the patient. He is aware of potential risks, which include anesthesia, bleeding, infection, ureteral injury, and inability to remove the calculus in its entirety.
[2023-11-20] MEDS: IV FLUID CONTINUATION 1,000 ML IV ONE (06:42)
[2023-11-20] MEDS ORDERED: HYDROmorphone 0.5 MG/0.5 ML SYRINGE IVP PRN (07:00)
[2023-11-20] MEDS: LACTATED RINGERS 1,000 ML IV SCH (07:00)
[2023-11-20] MEDS ORDERED: MIDAZOLAM 2 MG/2 ML VIAL IV PRN (07:00)
[2023-11-20] MEDS: LIDOCAINE 1% (10MG/ML) FOR IV START INTRADERMA PRN (07:00)
[2023-11-20] MEDS: ONDANSETRON 4 MG/2 ML VIAL IVP ONE (07:01)
[2023-11-20] MEDS: DEXAMETHASONE SOD PHOSPHATE 4 MG/ML 1 ML VIAL IV ONE (07:01)
--- NOTE | 2023-11-20 07:33 | XR ---
EXAMINATION TYPE: XR KUB DATE OF EXAM: 11/20/2023 COMPARISON: None INDICATION: Presurgical KUB TECHNIQUE: Single view abdomen supine view FINDINGS: There is a normal bowel gas pattern. Fecal debris is:. Psoas margins are normal. No organomegaly is present. There is a 1.0 cm calcification just proximal left ureteral stent. IMPRESSION: 1. 1.0 cm calcification adjacent proximal left ureteral stent.
[2023-11-20] MEDS ORDERED: fentaNYL (PF) 50 MCG/ML 2 ML AMP ONE (07:48)
[2023-11-20] MEDS ORDERED: PROPOFOL 10 MG/ML 20 ML VIAL IV ONE (07:48)
[2023-11-20] MEDS ORDERED: SUCCINYLCHOLINE CHLORIDE 200 MG/10 ML VIAL IV ONE (07:48)
[2023-11-20] MEDS ORDERED: LIDOCAINE 1% INJ 10MG/ML (20 ML MDV) ONE (07:48)
[2023-11-20] MEDS ORDERED: PHENYLEPHRINE-0.9% NACL SYG 1,000 MCG/10 ML SYRINGE ONE (07:48)
--- NOTE | 2023-11-20 09:01 | P.OP ---
Date of Procedure: 11/20/23 Preoperative Diagnosis: Left renal calculus Postoperative Diagnosis: Same Procedure(s) Performed: Cystoscopy, left ureteral stent removal, left ureteroscopy with Holmium laser lithotripsy and stone basketing Anesthesia: ARABELLA Surgeon: Tyson Eden Estimated Blood Loss (ml): 0 IV fluids (ml): 200 Pathology: other (Left renal calculus fragments, sent for chemical analysis) Condition: stable Disposition: PACU Indications for Procedure: The patient is a 78-year-old white male who presented with left flank pain, associated with nausea and vomiting. Urinalysis was suggestive of a UTI. CT scan showed left hydronephrosis due to a 9 mm left UPJ calculus. He was treated with antibiotics and underwent left ureteral stent insertion. He felt considerably better following that. The urine culture was negative. He now comes for ureteroscopic removal of the calculus. Operative Findings: Left renal pelvic calculus, fragmented and removed completely. Description of Procedure: The patient was taken to the operating room and placed in the dorsolithotomy position, with legs supported in Lisandro stirrups. The external genitalia was prepped and draped sterilely. The 30 lens was used to introduce the 21-[place] Case cystoscopic sheath through the urethra and into the bladder under direct vision. The prostatic urethra showed evidence of mild lateral lobe enlargement. The bladder was examined in its entirety. No abnormalities were seen. Grasping forceps were used to grasp the distal end of the left ureteral stent, which was withdrawn along with the cystoscope. A 0.038 inch Glidewire was passed through the stent and up to the left renal pelvis. The stent was removed, and an 11/13-[place]ien ureteral access catheter was passed over the wire, up to the proximal ureter. The Case Click With Me Now flexible u reteroscope was then passed through the ureteral access catheter sheath and up to the renal pelvis, where the calculus was seen. The 272 micron Holmium laser probe was passed through the ureteroscope, and lithotripsy was performed. The stone was coated with some fluffy debris which easily broke away. The core of the calculus was then fragmented, and fragments were removed using the 1.9 [place] 0 tip nitinol basket. Final inspection of the renal pelvis showed no residual calculus fragments, and none were seen on fluoroscopy. Pullout ureteroscopy showed no evidence of ureteral trauma. The patient tolerated the procedure well and was taken to the recovery room in stable condition. ALVIN SPRINGER Report: Procedure Acuity: Elective Stone Size and Location: 9 mm, left renal pelvis Ureteral Dilation: No Ureteral Access Sheath Used: Yes Stone Sent for Analysis: Yes All Stones/Fragments Were Removed with a Basket: Yes Complications: No Preoperative Antibiotics Given: Yes Stent Placed: No Discharge Medications: None
[2023-11-20 09:03] VITALS: TEMP 98.3
--- NOTE | 2023-11-20 09:52 | FL ---
EXAMINATION TYPE: FL guidance operating room Intraoperative/procedural fluoroscopic services were pro vided. Total fluoroscopy time is 9.3 seconds with a total of 1 submitted images to PACS. Please see t he operative/procedural note for further details. DAP: 0.8732 Gycm2
[2023-11-20 09:56] VITALS: PULSE 85
[2023-11-20 10:08] VITALS: BP 125/75; RESP 18
== END 2023-11-20 10:36 | disposition home or self-care (01) ==
LOC: OR 05:55
PROVIDERS: ATTEND Urology
DX: N13.2 Hydronephrosis with renal and ureteral calculous obstruction (principal); Z96.0 Presence of urogenital implants; E78.5 Hyperlipidemia, unspecified; G47.33 Obstructive sleep apnea (adult) (pediatric); J44.9 Chronic obstructive pulmonary disease, unspecified; I50.9 Heart failure, unspecified; Z87.891 Personal history of nicotine dependence; Z79.51 Long term (current) use of inhaled steroids; Z79.82 Long term (current) use of aspirin; Z79.899 Other long term (current) drug therapy; Z79.1 Long term (current) use of non-steroidal anti-inflammatories (NSAID)
CPT/HCPCS: 82365; 74018; 52353; C1769; C1894; J0330; J1100; J0690; J2405; J2001; J3010; J2704; J2371

== ENCOUNTER 2024-01-17 12:15 | Emergency (ER) | payer MEDICARE ==
[2024-01-17 12:19] VITALS: TEMP 97.9
--- NOTE | 2024-01-17 12:37 | ED ---
Abdominal Pain HPI - General Source: patient, RN notes reviewed Mode of arrival: ambulatory Limitations: no limitations <Roslyn Vargas - Last Filed: 01/17/24 12:35> <Peterson Young - Last Filed: 01/17/24 14:10> - General Chief Complaint: Abdominal Pain Stated Complaint: Abd pain Time Seen by Provider: 01/17/24 12:35 - History of Present Illness Initial Comments: Quick [id number] male presenting with suprapubic pain x 2 days. States he feels as though he has to urinate, however only urinates small amounts. He was diagnosed with a UTI 2 weeks ago and took full course of antibiotics. States this feels like previous urinary tract infections. Denies fever, chills, vomiting. He is tolerating orals well. (Roslyn Vargas) This is a 78-year-old male who presents to the emergency department complaining of suprapubic abdominal pain. Patient states he is able to urinate but very little. Patient denies any back pain. Patient has any fever chills or cough. Patient denies any history of kidney problems other than a kidney stone. Patient denies any problems breathing. Patient denies any dysuria hematuria or urinary frequency (Peterson Young) - Related Data Home Medications Medication Instructions Recorded Confirmed Naproxen Sodium [Aleve] 440 mg PO QAM 08/02/14 11/20/23 Mirabegron [Myrbetriq] 50 mg PO DAILY 09/11/18 11/20/23 Tamsulosin HCl [Flomax] 0.4 mg PO DAILY 09/11/18 11/20/23 Ipratropium/Albuterol Sulfate 1 puff INHALATION BID PRN 12/17/18 11/20/23 [Combivent Respimat Inhaler] Aspirin 81 mg PO DAILY 11/01/22 11/20/23 Budesonide/Formoterol Fumarate 2 puff INHALATION BID 01/17/23 11/20/23 [Symbicort 160-4.5 Mcg Inhaler] Atorvastatin Calcium [Lipitor] 40 mg PO DAILY 11/18/23 11/20/23 Unk Areds Vitamin 1 tab PO DAILY 11/18/23 11/20/23 Previous Rx's Medication Instructions Recorded Sulfamethox-Tmp 800-160Mg [Bactrim 1 each PO Q12HR #14 tab 01/17/24 DS 800-160 mg] Allergies Allergy/AdvReac Type Severity Reaction Status Date / Time No Known Allergies Allergy Verified 01/17/24 12:19 Review of Systems ROS Other: All systems not noted in ROS Statement are negative. <VargasRoslyn - Last Filed: 01/17/24 12:35> ROS Other: All systems not noted in ROS Statement are negative. <Peterson Young - Last Filed: 01/17/24 14:10> ROS Statement: Those systems with pertinent positive or pertinent negative responses have been documented in the HPI. Past Medical History Past Medical History: Cancer, COPD, Hyperlipidemia, Osteoarthritis (OA), Pneum onia, Prostate Disorder, Sleep Apnea/CPAP/BIPAP Additional Past Medical History / Comment(s): uses O2@2L [place] @ night or uses with cpap intertmittently, Hx skin cancer, Pneumonia., See cardiology H & P. kidney stone, BPH, pt states he has CHF, leg edema History of Any Multi-Drug Resistant Organisms: None Reported Past Surgical History: Heart Catheterization, Tonsillectomy Additional Past Surgical History / Comment(s): Vasectomy. colonoscopy Past Anesthesia/Blood Transfusion Reactions: No Reported Reaction Additional Past Anesthesia/Blood Transfusion Reaction / Comment(s): no hx blood transfusion Past Psychological History: No Psychological Hx Reported Smoking Status: Former smoker Past Alcohol Use History: None Reported Past Drug Use History: None Reported - Past Family History Mother Family Medical History: Cancer Brother(s) Family Medical History: Deep Vein Thrombosis (DVT) <Roslyn Vargas - Last Filed: 01/17/24 12:35> General Exam Limitations: no limitations <Roslyn Vargas - Last Filed: 01/17/24 12:35> <Peterson Young - Last Filed: 01/17/24 14:10> - General Exam Comments Initial Comments: Visual Physical Exam Vital signs reviewed General: Well-appearing, nontoxic, no acute distress. Head: Normocephalic, atraumatic Eyes: PERRLA, EOMI ENT: Airway patent Chest: Nonlabored breathing Skin: No visual rash, normal skin tone Neuro: Alert and oriented 3 Musculoskeletal: No gross abnormalities (Roslyn Vargas) GENERAL: Patient is well-developed and well-nourished. Patient is nontoxic and well- hydrated and is in mild distress. ENT: Neck is soft and supple. No significant lymphadenopathy is noted. Oropharynx is clear. Moist mucous membranes. Neck has full range of motion without eliciting any pain. EYES: The sclera were anicteric and conjunctiva were pink and moist. Extraocular movements were intact and pupils were equal round and reactive to light. Eyelids were unremarkable. PULMONARY: Unlabored respirations. Good breath sounds bilaterally. No audible rales rhonc hi or wheezing was noted. CARDIOVASCULAR: There is a regular rate and rhythm without any murmurs gallops or rubs. ABDOMEN: Suprapubic abdominal distention and tenderness. SKIN: Skin is clear with no lesions or rashes and otherwise unremarkable. NEUROLOGIC: Patient is alert and oriented x3. Cranial nerves II through XII are grossly intact. Motor and sensory are also intact. Normal speech, volume and content. Symmetrical smile. MUSCULOSKELETAL: Normal extremities with adequate strength and full range of motion. No lower extremity swelling or edema. No calf tenderness. LYMPHATICS: No significant lymphadenopathy is noted PSYCHIATRIC: Normal psychiatric evaluation. (Peterson Young) Course Vital Signs 01/17/24 12:17 Temperature 97.9 F Pulse Rate 99 Respiratory 20 Rate Blood Pressure 162/75 O2 Sat by Pulse 96 Oximetry Medical Decision Making <Roslyn Vargas - Last Filed: 01/17/24 12:35> - Lab Data Result diagrams: 01/17/24 13:00 01/17/24 13:00 <Peterson Young - Last Filed: 01/17/24 14:10> - Medical Decision Making I completed the quick note portion of this chart signed Roslyn Vargas PA-C (Roslyn Vargas) Was pt. sent in by a medical professional or institution (LINNE[facility] Johnson, [employer] 1 [employer] 5 TEACHER, urgent care, hospital, or long-term...) When possible be specific @ -No Did you speak to anyone other than the patient for history (EMS, parent, family, police, friend...)? What history was obtained from this source @ -No Did you review nursing and triage notes (agree or disagree)? Why? @ -I reviewed and agree with nursing and triage notes Were old charts reviewed (outside hosp., previous admission, EMS record, old EKG, old radiological studies, urgent care reports/EKG's, long-term records)? Report findings @ -No old charts were reviewed Differential Diagnosis? @ -Differential Abdominal Pain Men: Appendicitis, cholecystitis, diverticulosis, ischemic bowel, pancreatitis, hepatitis, UTI, gastroenteritis, AAA, incarcerated hernia, bowel obstruction, constipation, inflammatory bowel, hepatitis, peptic ulcer disease, splenic infarction, perforated viscus, testicular torsion, this is not meant to be an all-inclusive list EKG interpreted by me (3pts min.). @ -None X-rays interpreted by me (1pt min.). @ -None done CT interpreted by me (1pt min.). @ -None done U/S interpreted by me (1pt. min.). @ -None done What testing was considered but not performed or refused? (CT, X-rays, U/S, labs)? Why? @ -None What meds were considered but not given or refused? Why? @ -None Did you discuss the management of the patient with other professionals (professionals i.e. , PA, [employer] 5 TEACHER, lab, RT, psych nurse, social media director, lube technician, teacher, public affairs officer, casework supervisor)? Give summary @ -No Was smoking cessation discussed for >3mins.? @ -No Was critical care preformed (if so, how long)? @ -No Were there social determinants of health that impacted care today? How? (Homelessness, low income, unemployed, alcoholism, drug addiction, transport ation, low edu. Level, literacy, decrease access to med. care, senior living, rehab)? @ -No Was there de-escalation of care discussed even if they declined (Discuss DNR or withdrawal of care, Hospice)? DNR status @ -No What co-morbidities impacted this encounter? (DM, HTN, Smoking, COPD, CAD, Cancer, CVA, ARF, Chemo, Hep., AIDS, mental health diagnosis, sleep apnea, morbid obesity)? @ -None Was patient admitted / discharged? Hospital course, mention meds given and route, prescriptions, significant lab abnormalities, going to OR and other pertinent info. @ -Patient had a large amount of retained urine and so a Taylor catheter was placed and patient was given a leg bag. Patient's urine showed some white cells and some bacteria so the patient was treated for urinary tract infection as well Undiagnosed new problem with uncertain prognosis? @ -No Drug Therapy requiring intensive monitoring for toxicity (Heparin, Nitro, Insulin, Cardizem)? @ -No Were any procedures done? @ -No Diagnosis/symptom? @ -Urinary retention Acute, or Chronic, or Acute on Chronic? @ -Acute Uncomplicated (without systemic symptoms) or Complicated (systemic symptoms)? @ -Uncomplicated Side effects of treatment? @ -No Exacerbation, Progression, or Severe Exacerbation? @ -No Poses a threat to life or bodily function? How? (Chest pain, USA, AR, pneumonia, PE, COPD, DKA, ARF, appy, cholecystitis, CVA, Diverticulitis, Homicidal, Suicidal, threat to staff... and all critical care pts) @ -No Diagnosis/symptom? @ -Urinary tract infection Acute, or Chronic, or Acute on Chronic? @ -Acute Uncomplicated (without systemic symptoms) or Complicated (systemic symptoms)? @ -Complicated Side effects of treatment? @ -None Exacerbation, Progression, or Severe Exacerbation] @ -No Poses a threat to life or bodily function? @ -No (Peterson Young) - Lab Data Lab Results 01/17/24 01/17/24 01/17/24 Range/Units 13:00 13:00 13:31 WBC 9.8 (3.8-10.6) k/uL RBC 4.74 (4.30-5.90) m/uL Hgb 14.6 (13.0-17.5) gm/dL Hct 44.4 (39.0-53.0) % MCV 93.7 (80.0-100.0) fL MCH 30.7 (25.0-35.0) pg MCHC 32.8 (31.0-37.0) g/dL RDW 13.9 (11.5-15.5) % Plt Count 217 (150-450) k/uL MPV 7.2 Neutrophils % 79 % Lymphocytes % 9 % Monocytes % 7 % Eosinophils % 3 % Basophils % 0 % Neutrophils # 7.8 H (1.3-7.7) k/uL Lymphocytes # 0.9 L (1.0-4.8) k/uL Monocytes # 0.7 (0-1.0) k/uL Eosinophils # 0.2 (0-0.7) k/uL Basophils # 0.0 (0-0.2) k/uL Sodium 140 (137-145) mmol/L Potassium 4.6 (3.5-5.1) mmol/L Chloride 110 H (98-107) mmol/L Carbon Dioxide 23 (22-30) mmol/L Anion Gap 7 mmol/L BUN 20 (9-20) mg/dL Creatinine 1.06 (0.66-1.25) mg/dL Est GFR (CKD-EPI)AfAm 78 (>60 ml/min/1.73 sqM) Est GFR (CKD-EPI)NonAf 68 (>60 ml/min/1.73 sqM) Glucose 110 H (74-99) mg/dL Calcium 9.5 (8.4-10.2) mg/dL Total Bilirubin 0.8 (0.2-1.3) mg/dL AST 27 (17-59) U/L ALT 32 (4-49) U/L Alkaline Phosphatase 119 (38-126) U/L Total Protein 6.5 (6.3-8.2) g/dL Albumin 4.1 (3.5-5.0) g/dL Urine Color Colorless Urine Appearance Cloudy (Clear) Urine pH 6.5 (5.0-8.0) Ur Specific [place] 1.015 (1.001-1.035) Urine Protein Negative (Negative) Urine Glucose (UA) Negative (Negative) Urine Ketones Negative (Negative) Urine Blood Negative (Negative) Urine Nitrite Negative (Negative) Urine Bilirubin Negative (Negative) Urine Urobilinogen <2.0 (<2.0) mg/dL Ur Leukocyte Esterase Large H (Negative) Urine RBC 4 (0-5) /hpf Urine WBC 28 H (0-5) /hpf Urine WBC Clumps Rare H (None) /hpf Urine Bacteria Occasional H (None) /hpf Urine Mucus Rare H (None) /hpf Disposition <Roslyn Vargas - Last Filed: 01/17/24 12:35> Is patient prescribed a controlled substance at d/c from ED?: No Time of Disposition: 14:07 <Peterson Young - Last Filed: 01/17/24 14:10> Clinical Impression: Urinary retention, Urinary tract infection Disposition: HOME SELF-CARE Condition: Good Instructions (If sedation given, give patient instructions): Urinary Retention in Men (ED) Prescriptions: Sulfamethox-Tmp 800-160Mg [Bactrim DS 800-160 mg] 1 each PO Q12HR #14 tab Referrals: Kike Montanez DO [Primary Care Provider] - 1-2 days
[2024-01-17 13:20] LABS: Basophils % (A) 0 %; Eosinophils # (A) 0.2 k/uL (0-0.7); Eosinophils % (A) 3 %; HCT 44.4 % (39.0-53.0); HGB 14.6 gm/dL (13.0-17.5); Lymphocytes # (A) 0.9 k/uL (1.0-4.8); Lymphocytes % (A) 9 %; MCH 30.7 pg (25.0-35.0); MCHC 32.8 g/dL (31.0-37.0); MCV 93.7 fL (80.0-100.0); Mean Platelet Volume 7.2; Monocytes # (A) 0.7 k/uL (0-1.0); Monocytes % (A) 7 %; Neutrophils # (A) 7.8 k/uL (1.3-7.7); Neutrophils % (A) 79 %; Platelet Count 217 k/uL (150-450); RBC 4.74 m/uL (4.30-5.90); RDW 13.9 % (11.5-15.5); WBC 9.8 k/uL (3.8-10.6)
[2024-01-17 13:29] LABS: ALT 32 U/L (4-49); AST 27 U/L (17-59); African American GFR (CKD) 78 (>60 ml/min/1.73 sqM); Albumin 4.1 g/dL (3.5-5.0); Alkaline Phosphatase 119 U/L (38-126); Anion Gap 7 mmol/L; Blood Urea Nitrogen 20 mg/dL (9-20); Calcium 9.5 mg/dL (8.4-10.2); Carbon Dioxide 23 mmol/L (22-30); Chloride 110 mmol/L (98-107); Glucose 110 mg/dL (74-99); Non-African American GFR(CKD) 68 (>60 ml/min/1.73 sqM); Potassium 4.6 mmol/L (3.5-5.1); Sodium 140 mmol/L (137-145); Total Bilirubin 0.8 mg/dL (0.2-1.3); Total Protein 6.5 g/dL (6.3-8.2)
[2024-01-17 13:51] LABS: Appearance,Urine Cloudy (Clear); Bacteria,Urine Occasional /hpf; Bilirubin,Urine Negative (Negative); Blood,Urine Negative (Negative); Color,Urine Colorless; Glucose,Urine (UA) Negative (Negative); Ketones,Urine Negative (Negative); Leukocyte Esterase,Urine Large (Negative); Mucus,Urine Rare /hpf; Nitrite,Urine Negative (Negative); PH, Urine 6.5 (5.0-8.0); Protein,Urine Negative (Negative); RBC,Urine 4 /hpf (0-5); Specific Gravity,Urine 1.015 (1.001-1.035); Urobilinogen,Urine <2.0 mg/dL (<2.0); WBC,Urine 28 /hpf (0-5)
[2024-01-17] MEDS: cefTRIAXone IN SWFI 1,000 MG/10 ML SYRINGE IVP STA ×2 (14:24→15:04)
[2024-01-17 17:14] VITALS: BP 118/88; PULSE 93; RESP 18
== END 2024-01-17 15:10 | disposition home or self-care (01) ==
LOC: EC 12:15
CPT/HCPCS: 36415; 51702; 51798; 80053; 81001; 85025; 87077; 87086; 87186; 96374; 96376; 99284

== ENCOUNTER → 2024-02-13 | Outpatient (CLI) | payer MEDICARE ==
--- NOTE | 2024-02-13 11:04 | CTL ---
EXAMINATION TYPE: CT Low Dose Lung DATE OF EXAM ORDERED: 02/13/2024 COMPARISON: HISTORY: . Low Dose CT Lung Screening CT DLP: [address] CTDI: 2.14 mGy IV CONTRAST USED: None. SCREENING VISIT: First visit COMPARISON: None. TECHNIQUE: Low dose computed tomography scan was performed through the chest at 1 millimeter thick se ctions and reconstructed images in the coronal plane at [address] DIAGNOSTIC QUALITY: Satisfactory FINDINGS: LUNG NODULES: Calcified granuloma right upper lobe. Calcified hilar lymph nodes. LUNGS: COPD: Severity: Moderate Fibrosis: Severity: Mild Lymph nodes: None Other findings: None RIGHT PLEURAL SPACE: Effusion: None Calcification: None Thickening: None Pneumothorax: None LEFT PLEURAL SPACE: Effusion: None Calcification: None Thickening: None Pneumothorax: None HEART: Heart Size: Mildly enlarged Coronary calcification: Mild Pericardial effusion: None OTHER FINDINGS: Upper abdomen: No significant abnormality Bony thorax: Degenerative changes Supraclavicular region: No significant abnormalityOther: No significant abnormalityI IMPRESSION: No Concerning pulmonary nodularity seen at this time. Calcified granulomatous change. FOLLOW UP CT CHEST RECOMMENDATION: Follow-up screening in one year CT LUNG RAD: LUNG RAD CATEGORY benign appearance and/or behavior category 2 [facility], , 02/13/2024 11:02 AM
== END | disposition home or self-care (01) ==
LOC: RADCTMAIN 09:27
PROVIDERS: ATTEND Internal Medicine Hematology & Oncology
DX: Z12.2 Encounter for screening for malignant neoplasm of respiratory organs (principal); J84.10 Pulmonary fibrosis, unspecified; Z87.891 Personal history of nicotine dependence
CPT/HCPCS: 71271

== ENCOUNTER 2024-06-24 19:50 | Outpatient (CLI) | payer MEDICARE ==
--- NOTE | 2024-07-04 23:53 | P.PCN ---
Date of Procedure: 06/24/24 Operative Findings: CPAP titration report Date of service is 06/24/2024 History This is a 79-year-old male patient with known history of advanced COPD, FEV1 of 37% of predicted and chronic hypoxic respiratory failure, maintained on O2 therapy overnight. The patient also has history of obstructive sleep apnea, moderately severe and he wanted to pursue CPAP therapy again. Based on that, the patient underwent a CPAP titration.the original sleep study was done back in September 2019 and the patient was found to have moderate severe disease with an AHI of 26 and he also demonstrated severe nocturnal oxygen saturations and accordingly, the patient underwent a CPAP titration and the patient was titrated to a BiPAP pressure of 10/6 cm of water. He was provided fullface mask. His treatment back then was not successful and the patient was not much compliant. Another titration was ordered for this patient. The patient also has other comorbidities including coronary disease, hypertension, hyperlipidemia and BPH Pertinent physical findings Weight is 216 with a body mass index of 27.7 Technical description The patient was studied using a standard complex polysomnography protocol that included recording of the Lead II EKG, Central, occipital and frontal EEG, right and left outer canthus EOG, submental EMG, right and left anterior tibialis EMG, respiratory airflow by thermocouple and or pressure/flow transducer, respiratory efforts by abdominal and thoracic PVDF belts, oxygen saturation by cable oximetry. Position by observation synchronized the PSG. Equipment used: [employer]. Stepwise CPAP titration was done to eliminate all obstructive respiratory events Sleep architecture The total recording duration was 386.0 minutes. The total sleep time was 254.5 minutes. The sleep everything was calculated to be at 65.9%. The latency to sleep onset was 18 minutes. The sleep architecture was characterized by 11.8% stage I, 67.4% stage II, 3.3% stage III and 17.5% REM sleep. The latest REM sleep was 35 minutes. The total arousal index was 21.5. Respiratory analysis The patient was started on CPAP therapy initiated pressure of 7 cm of water and the pressure was gradually increased by agreement of 1 cm to reach a maximum CPAP pressure of 9 cm of water. I carefully reviewed the CSF titration taking palpitations sleep stage and body position. This was successful titration. The patient did encounter REM and non-REM sleep during the sleep study and he also has shown supine and nonsupine body position. No residual obstructive respiratory events and the patient had a successful titration and oxygen saturations also recovered by the patient being on CPAP therapy. Sleep continuity summary Patient had a total of 91 arousals with an index of 21.5 and respiratory arousal index was 0.7 Periodic limb movement activity An excessive number apparently movement activity were noted and the patient had a total of 422 PLM during sleep with a PLM index of 99.5. Only 6 of this periodic limb movement activities were associated with arousals. Cardiac summary Average heart rate was 61 with a minimum heart rate of 52 and a max heart of 69. Assessment Obstructive sleep apnea, with an AHI of 26 based on a sleep study that was done back in 2019. The patient is undergoing another titration. He has failed CPAP/BiPAP therapy in the past. The current titration was successful. The overall CBC was poor at 65.9%. Nevertheless, the patient encountered adequate elimination of the obstructive respiratory events while being on his CPAP therapy. COPD with chronic hypoxic respiratory failure. Based on FEV1 73% predicted Hypertension Hyperlipidemia Coronary artery disease BPH Plan Proceed with CPAP therapy at a pressure of 9 cm of water with C-Flex of 3. The patient will be provided a AirFit F20 large size fullface mask. Optimize COPD. Optimize rest of the comorbid conditions. Maintain regular sleep hygiene measures. Maintain regular sleep schedule. See him back in the office in 30 to 90 days to assess clinical response and compliancy.
== END 2024-06-25 05:15 | disposition home or self-care (01) ==
LOC: 3 N SLEEP 19:50
PROVIDERS: ATTEND Internal Medicine Critical Care Medicine
DX: G47.33 Obstructive sleep apnea (adult) (pediatric) (principal); J96.11 Chronic respiratory failure with hypoxia; I10 Essential (primary) hypertension; E78.5 Hyperlipidemia, unspecified; I25.10 Atherosclerotic heart disease of native coronary artery without angina pectoris; J44.9 Chronic obstructive pulmonary disease, unspecified; N40.0 Benign prostatic hyperplasia without lower urinary tract symptoms; Z99.89 Dependence on other enabling machines and devices; Z87.891 Personal history of nicotine dependence
CPT/HCPCS: 95811

== ENCOUNTER → 2024-07-06 | Outpatient (CLI) | payer MEDICARE ==
[2024-07-06 19:28] LABS: Basophils # (A) 0.03 X 10*3/uL (0.00-0.10); Basophils % (A) 0.4 %; Blood Urea Nitrogen 16.2 mg/dL (9.0-27.0); Calcium 9.3 mg/dL (8.7-10.3); Carbon Dioxide 23.2 mmol/L (21.6-31.8); Chloride 107 mmol/L (96-109); Eosinophils # (A) 0.25 X 10*3/uL (0.04-0.35); Eosinophils % (A) 3.3 %; Glucose 81 mg/dL (70-110); HCT 42.4 % (39.6-50.0); HGB 13.9 g/dL (13.0-17.0); Lymphocytes # (A) 1.21 X 10*3/uL (0.90-5.00); Lymphocytes % (A) 16.2 %; MCH 30.1 pg (27.0-32.0); MCHC 32.8 g/dL (32.0-37.0); MCV 91.8 FL (80.0-97.0); Mean Platelet Volume 10.2 FL (9.5-12.2); Monocytes # (A) 0.76 X 10*3/uL (0.20-1.00); Monocytes % (A) 10.1 %; NRBC Per 100 WBC 0 X 10*3/uL (0.00-0.01); Neutrophils % (A) 69.5 %; Platelet Count 193 X 10*3/uL (140-440); Potassium 4.5 mmol/L (3.5-5.5); RBC 4.62 X 10*6/uL (4.40-5.60); Sodium 141 mmol/L (135-145); WBC 7.49 X 10*3/uL (4.50-10.00)
== END | disposition home or self-care (01) ==
LOC: LABPAT 15:34
PROVIDERS: ATTEND Urology
DX: Z01.812 Encounter for preprocedural laboratory examination (principal); C61 Malignant neoplasm of prostate
CPT/HCPCS: 80048; 85025; 86850; 86900; 86901; 87086

== ENCOUNTER → 2024-07-08 | Outpatient (CLI) | payer MEDICARE | END | disposition home or self-care (01) | LOC: LABPAT 13:53 | PROVIDERS: ATTEND Anesthesiology | DX: Z01.818 Encounter for other preprocedural examination (principal); I45.10 Unspecified right bundle-branch block; I44.4 Left anterior fascicular block; I45.2 Bifascicular block; R94.31 Abnormal electrocardiogram [ECG] [EKG] | CPT/HCPCS: 93005 ==

== ENCOUNTER 2024-07-13 05:36 | Day surgery (SDC) | payer MEDICARE ==
[2024-07-07 12:43] VITALS: BMI 27.6
--- NOTE | 2024-07-11 12:57 | P.HPIHPCON ---
History of Present Illness H&P Date: 07/11/24 Chief Complaint: Prostate cancer This is a 79-year-old male with a history of Celsa 7 prostate cancer. Had a prolonged discussion with him options of robotic radical prostatectomy, radiation therapy and active surveillance were discussed in details. Risk and benefit of each approach were discussed. He agreed to proceed with a robotic radical prostatectomy. He is aware of the risk which include but not limited to bleeding, infection, injury to nearby organs. Discussed risk of erectile dysfunction and urinary incontinence. Medical complication of surgery was discussed. Risk of cancer recurrence and the need for additional treatments was also discussed. He understood all the risk and agreed to proceed Consent for Procedure: I have explained the operation/procedure to the patient, including the risks, benefits, side effects, alternative therapies (including not receiving the proposed treatment or service), the likelihood of the patient achieving his/her goals, and potential recuperation problems for the procedure/sedation/analgesia, as well as any blood products, if indicated. I also explained to the patient the risks, benefits and side effects of the alternatives, as well as the risks related to not receiving the proposed procedure, care, treatment, or services. Past Medical History Past Medical History: Cancer, Heart Failure, COPD, Hyperlipidemia, Osteoarthritis (OA), Pneumonia, Prostate Disorder, Sleep Apnea/CPAP/BIPAP Additional Past Medical History / Comment(s): uses O2@2L [place] @ night or uses with cpap intertmittently, Hx skin cancer, See cardiology H & P. kidney stone, BPH, pt states he has CHF, leg edema History of Any Multi-Drug Resistant Organisms: None Reported Past Surgical History: Heart Catheterization, Orthopedic Surgery, Tonsillectomy Additional Past Surgical History / Comment(s): Vasectomy. colonoscopy, both knees arthroscopy Past Anesthesia/Blood Transfusion Reactions: No Reported Reaction Additional Past Anesthesia/Blood Transfusion Reaction / Comment(s): no hx blood transfusion Smoking Status: Former smoker - Past Family History Mother Family Medical History: Cancer Additional Family Medical History / Comment(s): breast Brother(s) Family Medical History: Deep Vein Thrombosis (DVT) Medications and Allergies Home Medications Medication Instructions Recorded Confirmed Type Naproxen Sodium [Aleve] 440 mg PO QAM 08/02/14 07/07/24 History Tamsulosin HCl [Flomax] 0.4 mg PO DAILY 09/11/18 07/07/24 History Ipratropium/Albuterol Sulfate 1 puff INHALATION BID PRN 12/17/18 07/07/24 History [Combivent Respimat Inhaler] Aspirin 81 mg PO DAILY 11/01/22 07/07/24 History Budesonide/Formoterol Fumarate 2 puff INHALATION BID 01/17/23 07/07/24 History [Symbicort 160-4.5 Mcg Inhaler] Atorvastatin Calcium [Lipitor] 40 mg PO HS 11/18/23 07/07/24 History Unk Areds Vitamin 1 tab PO DAILY 11/18/23 07/07/24 History Allergies Allergy/AdvReac Type Severity Reaction Status Date / Time No Known Allergies Allergy Verified 07/07/24 12:33 Surgical - Exam - General no distress, no pain - Eyes normal ocular movement, no pale - ENT normal nares, normal mucosa, no hearing loss - Respiratory normal expansion, normal respiratory effort - Abdomen Abdomen: soft, non tender, no distended - Psychiatric oriented to time, oriented to person, oriented to place Assessment and Plan Assessment: OR for robotic radical prostatectomy, possible pelvic lymph node dissection
[2024-07-13] MEDS: LACTATED RINGERS 1,000 ML IV SCH (06:30)
[2024-07-13] MEDS: LIDOCAINE 1% (10MG/ML) FOR IV START INTRADERMA PRN (06:35)
[2024-07-13] MEDS: IV FLUID CONTINUATION 1,000 ML IV ONE ×2 (06:35→06:40)
[2024-07-13] MEDS: LIDOCAINE 1% (10MG/ML) FOR IV START INTRADERMA ONE (06:40)
[2024-07-13] MEDS: DEXAMETHASONE SOD PHOSPHATE 4 MG/ML 1 ML VIAL IV ONE (06:42)
[2024-07-13] MEDS: ONDANSETRON 4 MG/2 ML VIAL IVP ONE (06:42)
[2024-07-13] MEDS: MIDAZOLAM 2 MG/2 ML VIAL IV PRN (06:58)
[2024-07-13] MEDS ORDERED: fentaNYL (PF) 50 MCG/ML 2 ML AMP IVP PRN (07:00)
[2024-07-13] MEDS: HEPARIN SODIUM,PORCINE 5,000 UNIT/ML 1 ML VIAL SQ PRN (07:15)
[2024-07-13] MEDS ORDERED: PHENYLEPHRINE 10 MG/ML VIAL ONE (07:25)
[2024-07-13] MEDS ORDERED: NEOSTIGMINE 1 MG/ML 10 ML VIAL ONE (07:25)
[2024-07-13] MEDS ORDERED: PHENYLEPHRINE-0.9% NACL SYG 1,000 MCG/10 ML SYRINGE ONE (07:25)
[2024-07-13] MEDS ORDERED: LIDOCAINE 1% INJ 10MG/ML (20 ML MDV) ONE (07:25)
[2024-07-13] MEDS ORDERED: ROPIVACAINE 5 MG/ML 30 ML VIAL ONE (07:25)
[2024-07-13] MEDS ORDERED: SODIUM CHLORIDE 0.9% (PF) 10 ML VIAL ONE (07:25)
[2024-07-13] MEDS ORDERED: fentaNYL (PF) 50 MCG/ML 2 ML AMP ONE (07:25)
[2024-07-13] MEDS ORDERED: ROCURONIUM 10 MG/ML (5 ML VIAL) IV ONE (07:25)
[2024-07-13] MEDS ORDERED: DEXAMETHASONE SOD PHOSPHATE 4 MG/ML 1 ML VIAL ONE (07:25)
[2024-07-13] MEDS ORDERED: SUCCINYLCHOLINE CHLORIDE 200 MG/10 ML VIAL IV ONE (07:25)
[2024-07-13] MEDS ORDERED: GLYCOPYRROLATE 0.2 MG/ML 2 ML VIAL ONE (07:25)
[2024-07-13] MEDS ORDERED: PROPOFOL 10 MG/ML 20 ML VIAL IV ONE (07:25)
[2024-07-13] MEDS: GENTAMICIN 40 MG/ML 2 ML VIAL IRRIGATION ONE (07:30)
[2024-07-13] MEDS ORDERED: IPRATROPIUM-ALBUTEROL 3 ML NEB INHALATION PRN (07:44)
[2024-07-13] MEDS ORDERED: ONDANSETRON 4 MG/2 ML VIAL IVP PRN (07:45)
[2024-07-13] MEDS ORDERED: HYDROmorphone 1 MG/ML 1 ML SYRINGE IVP PRN (07:45)
[2024-07-13] MEDS ORDERED: HYDROcodone/APAP 5-325MG 1 EACH TAB PO PRN (07:46)
[2024-07-13] MEDS: BUPIVACAINE (PF) 0.25% 30 ML VIAL SQ ONE ×2 (08:03→11:10)
[2024-07-13] MEDS: LACTATED RINGERS 1,000 ML IV ONE (09:37)
--- NOTE | 2024-07-13 11:56 | P.ANPRN ---
Procedure Note - Anesthesia - Nerve Block Performed Bilateral Erector Spinae Single Time Out Performed: Yes Date of Procedure: 07/13/24 Procedure Start Time: 06:58 Procedure Stop Time: 07:04 Location of Patient: PreOp Indication: Acute Post-Operative Pain, Requested by Surgeon Sedation Type: Sedate with meaningful contact maintained Preparation: Sterile Prep Position: Prone Needle Types: Pajunk Needle Gauge: 21 Ultrasound used to visualize needle placement: Yes Ultrasound used to observe medication spread: Yes Blood Aspirated: No Pain Paresthesia on Injection Noted: No Resistance on Injection: Normal Image Stored and Saved: Yes Events: Uneventful and Well Tolerated (ropi .5% 15cc plus ns 10cc plus dexamethasone 4mg given bilaterally at L1)
--- NOTE | 2024-07-13 11:57 | P.ANPRN ---
Procedure Note - Anesthesia - Invasive Line Right Arterial Line Time Out Performed: Yes Date of Procedure: 07/13/24 Time of Procedure: 07:14 Location of Patient: PreOp Preparation: Sterile Prep, Sterile Dressing Arterial Line Location: Radial Ultrasound Used: No Purpose - Visualization and Identification of Vasculature: No Image Stored and Saved: No Narrative: Invasive line placement per sterile protocol utilized.
--- NOTE | 2024-07-13 12:03 | P.OP ---
Date of Procedure: 07/13/24 Preoperative Diagnosis: Prostate cancer Postoperative Diagnosis: Same Procedure(s) Performed: Robotic radical prostatectomy Implants: None Anesthesia: ARABELLA Surgeon: Johnnie Cedillo Estimated Blood Loss (ml): 150 Pathology: other (Prostate, bilateral seminal vesicles) Condition: stable Disposition: PACU Indications for Procedure: This is a 79-year-old male with a history of Celsa 7(3+4) prostate cancer. Had a prolonged discussion with him options of robotic radical prostatectomy, radiation therapy and active surveillance were discussed in details. Risk and benefit of each approach were discussed. He agreed to proceed with a robotic radical prostatectomy. He is aware of the risk which include but not limited to bleeding, infection, injury to nearby organs. Discussed risk of erectile dysfunction and urinary incontinence. Medical complication of surgery was discussed. Risk of cancer recurrence and the need for additional treatments was also discussed. He understood all the risk and agreed to proceed Description of Procedure: After preoperative antibiotics were started, the patient was taken to the operating room. Anesthesia was induced and the patient was placed in a supine position, with adequate padding of the pressure points, shoulders, back, legs and arms. He was then prepped and draped in the standard fashion. A critical pause was performed using two patient identifiers. A 16F loredo catheter was placed to gravity drainage. A pneumo-peritoneum was created with placement of a Veress needle to 20 mm Hg without complication, and a 8 Fr trocar was placed above the umbillicus. Under direct vision a 8mm robotic ports was placed lateral to each rectus slightly below the camera port. The left iliac fossa 8mm port was placed. The right assistant housekeeping manager right iliac fossa 12mm port and right paramedian 5mm portwere placed. After the patient was placed in the trendelenberg position, the robot was then docked to the 8mm robotic ports and then each robotic arm and tower was checked in relation to the patient's legs and hands to avoid inadvertent compression. The peritoneal cavity was inspected. An inverted U-shaped incision began laterally to the left medial umbilical ligament and extended high across the midline to the right umbilical ligament. The limbs of the "U" extended to the level of the vasa on both sides. We next developed the preperitoneal space and the space of Retzius. Cautery was used to dissected the bladder away from the prostate. After the anterior bladder neck was incised and the bladder entered the the posterior bladder neck was exposed and the ureteral orifces identified. Patient had multiple small bladder stones within the bladder, both were removed. The posterior bladder neck was then incised and dissected away from the prostate. The vas and the seminal vesicles were now exposed and dissected to their insertions into the prostate and were not spared. The posterior layer of the Denonvillier's fascia was incised to enter into the plane between prostate and perirectal fat. Each lateral pedicle was controlled with vessel sealer. Partial nerve preservation was performed bilaterally. The puboprostatic ligament was incised where it inserted into the apex of the prostate and a plane between urethra and dorsal venous complex developed to expose the anterior urethral surface. The anterior wall of the urethra was transected with the cut setting a few mil limeters distal to the apex of the prostate. The dorsal vein was ligated using 3-0 V lock The urethrovesical anastomosis was performed . the posterior denovillers was reapproximated using 3-0 V lock. A 9 and 9 inch 3-0 V-Lock suture was used to anastomose the urethra and bladder, starting at the 6:00 posterior position. Mucosa was secured in every stitch, to ensure a mucosa to mucosa anastomosis. The stitch was regularly cinched and the anastomosis tightened. Care was taken to not violate the ureteral orifices. The Loredo catheter was advanced, the bladder filled, and the anastomosis was tested, as described above. Anastomsis was watertight at 200 mL The periumbilical fascia was closed with 1-0-PDS suture in figure of eight fashion. All ports were closed with a subcuticular 4-0 monocryl and Dermabond. Sponge, instrument, and needle counts were correct at the end of the case x2. All specimens including prostate was sent to pathology for diagnosis and will be available in a week. The patient tolerated the surgery well and without complication. He awoke without difficulty and was taken to the recovery room in stable condition
[2024-07-13] MEDS: HYDROmorphone 0.5 MG/0.5 ML SYRINGE IVP PRN (12:11)
[2024-07-13] MEDS: KETOROLAC 15 MG/ML 1 ML VIAL IVP SCH (14:03)
[2024-07-13] MEDS: DEXTROSE 5%-0.45% NACL 1,000 ML IV SCH (15:01)
[2024-07-13] MEDS: LEVOFLOXACIN 500MG-D5W PMX 500 MG in DEXTROSE/WATER 1 100ML.BAG IVPB SCH (15:01)
[2024-07-13] MEDS: PIPERACILLIN-TAZOBACTAM 3.375 GM in SODIUM CHLORIDE 0.9% 100 ML IVPB SCH (18:00)
[2024-07-13] MEDS: ATORVASTATIN 40 MG TAB PO SCH (20:50)
[2024-07-13] MEDS: SYMBICORT 160-4.5 MCG INHALER INHALATION SCH (21:05)
[2024-07-14 07:46] VITALS: RESP 19
[2024-07-14 13:55] VITALS: BP 121/61; PULSE 100; TEMP 98
--- NOTE | 2024-07-14 16:22 | P.DS ---
Providers Attending physician: Johnnie Cedillo MD Primary care physician: Clara Barton Hospital Course: This is a 79-year-old male history of prostate cancer. Underwent a robotic radical prostatectomy on July 13. Please see op note dated July 13 for surgery details. Patient was admitted to the hospital postoperatively. He was discharged home with a Taylor catheter on postop day #1. At the time of discharge he was tolerating a diet, ambulating, and pain was controlled Plan - Discharge Summary Discharge Rx Participant: Yes New Discharge Prescriptions: New Ketorolac [Toradol] 10 mg PO Q6HR PRN #15 tab PRN Reason: Pain No Action Naproxen Sodium [Aleve] 440 mg PO QAM Tamsulosin HCl [Flomax] 0.4 mg PO DAILY Ipratropium/Albuterol Sulfate [Combivent Respimat Inhaler] 1 puff INHALATION BID PRN PRN Reason: Dyspnea Atorvastatin Calcium [Lipitor] 40 mg PO HS Unk Areds Vitamin 1 tab PO DAILY Aspirin 81 mg PO DAILY Budesonide/Formoterol Fumarate [Symbicort 160-4.5 Mcg Inhaler] 2 puff INHALATION BID Discharge Medication List Naproxen Sodium [Aleve] 440 mg PO QAM 08/02/14 [History] Tamsulosin HCl [Flomax] 0.4 mg PO DAILY 09/11/18 [History] Ipratropium/Albuterol Sulfate [Combivent Respimat Inhaler] 1 puff INHALATION BID PRN 12/17/18 [History] Aspirin 81 mg PO DAILY 11/01/22 [History] Budesonide/Formoterol Fumarate [Symbicort 160-4.5 Mcg Inhaler] 2 puff INHALATION BID 01/17/23 [History] Atorvastatin Calcium [Lipitor] 40 mg PO HS 11/18/23 [History] Unk Areds Vitamin 1 tab PO DAILY 11/18/23 [History] Ketorolac [Toradol] 10 mg PO Q6HR PRN #15 tab 07/14/24 [Rx] Follow up Appointment(s)/Referral(s): Johnnie Cedillo MD [STAFF PHYSICIAN] - 07/26/24 8:50 am Patient Instructions/Handouts: Suprapubic Prostatectomy (DC), Taylor Catheter Placement and Care (DC) Activity/Diet/Wound Care/Special Instructions: No heavy lifting or straining You may shower no baths Discharge Disposition: HOME SELF-CARE
== END 2024-07-14 14:11 | disposition home or self-care (01) ==
LOC: OR 05:36 → 4SSUR 11:26 → OR 07-14 14:11
PROVIDERS: ATTEND Urology
DX: C61 Malignant neoplasm of prostate (principal); E78.5 Hyperlipidemia, unspecified; G89.18 Other acute postprocedural pain; I50.9 Heart failure, unspecified; G47.33 Obstructive sleep apnea (adult) (pediatric); J44.9 Chronic obstructive pulmonary disease, unspecified; M19.90 Unspecified osteoarthritis, unspecified site; N40.0 Benign prostatic hyperplasia without lower urinary tract symptoms; Z79.51 Long term (current) use of inhaled steroids; Z79.82 Long term (current) use of aspirin; Z85.828 Personal history of other malignant neoplasm of skin; Z87.891 Personal history of nicotine dependence; Z90.79 Acquired absence of other genital organ(s); Z99.89 Dependence on other enabling machines and devices; Z90.89 Acquired absence of other organs; Z87.442 Personal history of urinary calculi; Z79.899 Other long term (current) drug therapy
CPT/HCPCS: 55866; 64999; 88304; 88307; 88309; J2543 ×2; J2250; J0330; J1580; J1644; J1100; J2710; J0690; J2405; J1956; J2003; J3010; J2795; J1885 ×2; J2704; J1171; J2371 ×2; J0665; J1596